=== PATIENT | female | born 1945 | race Hispanic/Latino ===

== ENCOUNTER 2022-03-14 13:04 | Outpatient (CLI) | payer MEDICARE, BC | END 2022-03-14 13:05 | disposition home or self-care (01) | LOC: CSHMAMMO 13:04 | PROVIDERS: ATTEND Internal Medicine Hematology & Oncology | DX: Z08 Encounter for follow-up examination after completed treatment for malignant neoplasm (principal); Z85.3 Personal history of malignant neoplasm of breast | CPT/HCPCS: 77066; G0279 ==